=== PATIENT | male | born 1985 | race Hispanic/Latino ===

== ENCOUNTER 2017-03-17 14:44 | Emergency (ER) | payer OTHER ==
[~2017-03-17] VITALS: Ht 175.3 cm; Wt 108.3 kg
[~2017-03-17 14:44] MED LIST: LORTAB 5-325 M1 EACH PO
[2017-03-17 16:44] LABS: HEMATOCRIT 42.7 % (38.0-50.0); MCH 26.9 PG (29.0-34.0); MCHC 33.3 G/DL (30.0-36.0); MCV 80.9 FL (86-99); MEAN PLAT.VOLUME 10.4 uM^3 (9.0-12.4); PLATELET COUNT 251 K/uL (156-360); RBC DIS.WIDTH-CV 12.7 % (11.8-14.6); RBC DIS.WIDTH-SD 36.9 % (39-53); RED BLOOD COUNT 5.28 M/uL (4.00-5.50)
[2017-03-17 17:03] LABS: CHLORIDE 111 mEq/L (99-109); SODIUM 139 mEq/L (136-147)
[2017-03-17 17:04] LABS: AMYLASE 32 IU/L (1-118)
[2017-03-17 17:05] LABS: GLUCOSE 252 mg/dL (70-99)
[2017-03-17 17:07] LABS: ANION GAP 9 MEQ/L (2-14); TOTAL BILIRUBIN 0.5 mg/dL (0.0-1.0)
[2017-03-17 17:09] LABS: ALKALINE PHOSPHATASE 59 IU/L (3-129); GFR ESTIMATE (CALCULATED) > 59 mL/min/
[2017-03-17 17:10] LABS: UREA NITROGEN (BUN) 11 mg/dL (9-23)
[2017-03-17 17:13] LABS: LIPASE 7 U/L (1.0-51.0)
[2017-03-17 19:08] LABS: ADD MIUA? NO; BILIRUBIN NEGATIVE; BLOOD NEGATIVE; COLOR YELLOW ((YELLOW)); GLUCOSE (STRIP) >=500; KETONES 20; LEUKOCYTES NEGATIVE; NITRITE NEGATIVE; PROTEIN (STRIP) NEGATIVE; SPECIFIC GRAVITY 1.025 (1.000-1.030); UCUL ADDED? NO; UROBILINOGEN 0.2 MG/DL (0.2-1.0)
[2017-03-17] MEDS ORDERED: OMEPRAZOLE40 M1 PO (20:43)
[2017-03-17] MEDS ORDERED: NORCO 5/3251 TABLET PO (20:43)
[2017-03-17] MEDS ORDERED: ZOFRAN4 MG PO (20:43)
[2017-03-17 20:57] VITALS: BP 109/63
== END 2017-03-17 20:58 | disposition home or self-care (01) ==
LOC: EME 14:44
PROVIDERS: Physician Assistant
DX: R10.9 Unspecified abdominal pain (principal); R11.0 Nausea; E11.65 Type 2 diabetes mellitus with hyperglycemia; Z90.49 Acquired absence of other specified parts of digestive tract; Z87.442 Personal history of urinary calculi
CPT/HCPCS: 74177; 80053; 81003; 82010; 82150; 83605; 83690; 85027; 93005; 99281; 99285; J1885; J2270; J2405; J3010; J7030; J7050